=== PATIENT | male | born 1960 | race American Indian/Alaskan Native ===

== ENCOUNTER 2016-12-08 09:22 | Observation (INO) | payer MEDICAID ==
--- NOTE | 2016-12-08 09:43 | ED PDOC ---
HPI: Chest Pain Time Seen by Provider: 12/08/16 09:30 Chief Complaint (Provider): Chest pain with shortness of breath History Per: Patient History/Exam Limitations: no limitations Onset/Duration Of Symptoms: Days (x2) Current Symptoms Are (Timing): Still Present Additional Complaint(s): Ryan Rucker is a 56 year old male with a past medical history of CAD, MO, and CHF presenting to the ED for an evaluation of left sided non-radiating chest pain associated with shortness of breath occurring for 2 days prior to arrival. The patient states he has had swelling to his lower extremities. He denies fever or cough. PMD: TBD Past Medical History Reviewed: Historical Data, Nursing Documentation, Vital Signs Vital Signs: Last Vital Signs Temp 97 F L 12/08/16 09:42 Pulse 93 H 12/08/16 09:42 Resp 18 12/08/16 09:42 BP 125/81 12/08/16 09:42 Pulse Ox 97 12/08/16 09:42 - Medical History PMH: CAD, CHF, HTN Other PMH: MO - Family History Family History: States: Unknown Family Hx - Immunization History Hx Tetanus Toxoid Vaccination: No Hx Influenza Vaccination: No Hx Pneumococcal Vaccination: No - Home Medications Home Medications: Ambulatory Orders Medication Instructions Recorded Aspirin [Ecotrin] 81 mg PO DAILY #30 tabec 06/06/16 Carvedilol [Coreg] 6.25 mg PO BID #60 tab 06/06/16 Furosemide [Lasix] 20 mg PO DAILY #30 tablet 06/06/16 Lisinopril [Zestril] 2.5 mg PO DAILY #30 tab 06/06/16 Spironolactone [Aldactone] 25 mg PO DAILY #30 tab 06/06/16 - Allergies Allergies/Adverse Reactions: Allergies Allergy/AdvReac Type Severity Reaction Status Date / Time No Known Allergies Allergy Verified 12/08/16 09:42 Review of Systems ROS Statement: Except As Marked, All Systems Reviewed And Found Negative Constitutional: Negative for: Fever Cardiovascular: Positive for: Chest Pain (left sided ) Respiratory: Positive for: Shortness of Breath. Negative for: Cough Musculoskeletal: Positive for: Leg Pain (swelling to lower extremities ) Physical Exam - Reviewed Nursing Documentation Reviewed: Yes Vital Signs Reviewed: Yes - Physical Exam Appears: Positive for: Non-toxic, No Acute Distress Head Exam: Positive for: ATRAUMATIC, NORMOCEPHALIC Cardiovascular/Chest: Positive for: Regular Rate, Rhythm, Murmur (2/6 systolic murmur ) Respiratory: Positive for: Rales (minimal rales to right base). Negative for: Wheezing, Respiratory Distress Gastrointestinal/Abdominal: Positive for: Normal Exam, Soft. Negative for: Tenderness Extremity: Positive for: Other (2+ pitting edema to lower extremities bilaterally ) Neurologic/Psych: Positive for: Alert, Oriented (x3) - Laboratory Results Result Diagrams: 12/08/16 09:59 12/08/16 09:59 Medical Decision Making Medical Decision Making: Time: 09:30 Impression: Left sided chest pain with shortness of breath Plan: * ED ekg * Alcohol Serum * B-Type Natriuretic Peptide * CMP * Drug screen, Urine * Troponin I * CBC (with differential) * Aspirin 325 mg PO * [RAD] Chest Two Views (PA/LAT) * Reevaluation Scribe Attestation: Documented by Tory Barton, acting as a scribe for Manolo Sykes MD. Provider Scribe Attestation: All medical record entries made by the Scribe were at my direction and personally dictated by me. I have reviewed the chart and agree that the record accurately reflects my personal performance of the history, physical exam, medical decision making, and the department course for this patient. I have also personally directed, reviewed, and agree with the discharge instructions and disposition. Disposition - Clinical Impression Clinical Impression: Chest pain, Pleural effusion - Patient ED Disposition Is Patient to be Admitted: Yes - Disposition Disposition Time: 10:57 Condition: FAIR - Pt Status Changed To: Hospital Disposition Of: Observation - POA Present On Arrival: None
[2016-12-08 10:30] LABS: BASO # 0.1 K/uL (0.0-0.2); EOS % 0.4 % (0.0-4.0); HEMATOCRIT 33.7 % (35.0-51.0); LYMPH # 0.8 K/uL (1.0-4.3); LYMPH % 14.5 % (20.0-40.0); MEAN CELL VOLUME 107.6 fl (80.0-94.0); MEAN CORPUSCULAR HEMOGLOBIN 35.2 pg (27.0-31.0); MEAN CORPUSCULAR HGB CONC 32.7 g/dL (33.0-37.0); MEAN PLATELET VOLUME 8.1 fl (7.2-11.7); MONO # 0.8 K/uL (0.0-0.8); MONO % 14.4 % (0.0-10.0); NEUT % 69.7 % (50.0-75.0); NRBC % 0.1 % (0.0-0.0); RED CELL DISTRIBUTION WIDTH 17.1 % (11.5-14.5); WHITE BLOOD COUNT 5.7 K/uL (4.8-10.8)
--- NOTE | 2016-12-08 10:31 | RAD ---
HISTORY: chest pain COMPARISON: No prior. TECHNIQUE: Chest PA and lateral FINDINGS: LUNGS: There is loss of the left hemidiaphragm in the frontal view alone. Consider left lower lobe infiltrate or atelectasis. There is also small patchy density questioned at the left apex laterally versus artifact. No definite infiltrate is apparent at the right. Trace linear atelectasis in the right base laterally. PLEURA: No significant pleural effusion identified. No pneumothorax apparent. CARDIOVASCULAR: Cardiomegaly is seen without pulmonary vascular derangement. OSSEOUS STRUCTURES: No significant abnormalities. VISUALIZED UPPER ABDOMEN: Normal. OTHER FINDINGS: None. IMPRESSION: 1. Left lower lobe infiltrate or atelectasis suspected. Trace patchy density seen the left apex laterally as well. No definite right-sided infiltrate. 2. Linear atelectasis or fibrosis right base laterally. 3. Cardiomegaly without pulmonary vascular derangement.
[2016-12-08 10:46] LABS: ALB/GLOB RATIO 0.8 (1.0-2.1); ALCOHOL SERUM 21 mg/dl (0-10); ALKALINE PHOSPHATASE 103 U/L (38-126); ALT/SGPT 42 U/L (21-72); AST/SGOT 79 U/L (17-59); BILIRUBIN,TOTAL 1.9 mg/dl (0.2-1.3); BLOOD UREA NITROGEN 5 mg/dl (9-20); CALCIUM 8.8 mg/dL (8.4-10.2); CARBON DIOXIDE 27 mmol/L (22-30); CHLORIDE 100 mmol/L (98-107); GFR AFRICAN-AMERICAN > 60; GLUCOSE,RANDOM 92 mg/dL (75-110); POTASSIUM 4.3 MMOL/L (3.6-5.0); SODIUM 140 mmol/l (132-148); TOTAL PROTEIN 8.4 G/DL (6.3-8.2)
[2016-12-08 13:25] LABS: CHOLESTEROL 120 mg/dL (0-199)
[2016-12-08] MEDS ORDERED: Enoxaparin 40 mg Syringe SC SCH (15:15)
--- NOTE | 2016-12-08 16:32 | CP.PCM.HP ---
History of Present Illness - History of Present Illness History of Present Illness: CC: chest pain This is a 56 year old male with past medical history of DC, CHF, and hypertension, who presents to the ED with the comlaint of lower extremity swelling and shortness of breath. The patient states that he has ran out of his medications and has not taken any since he was discharged from [facility] 2 weeks ago. He denies history of blood clots. He admits to dyspnea on exertion and is only able to go up 1 flight of stairs before having to catch his breath. He admits to sharp , mild chest pain this morning, pressure like, on the right side of his chest, dull, nonradiating. Pain is now a 3/10. He denies diaphoresis, changes in vision, confusion, fevers, chills, n/v , diarrhea, constipation, abdominal pain, headache. Patient is homeless. In the ED, the patient had CXR showing small pleural effusion. He was noted to have increased bilateral pedal edema. He is to be placed on tele/obs for increased third spacing of fluid and sob secondary to CHF, with r/o of acs due to chest pain. Present on Admission - Present on Admission Any Indicators Present on Admission: No Review of Systems - Hematologic/Lymphatic Additional comments: REVIEW OF SYSTEMS: CONSTITUTIONAL: No weight loss, fever, chills, weakness or fatigue. HEENT: Eyes: No visual loss, blurred vision, double vision or yellow sclerae. Ears, Nose, Throat: No hearing loss, sneezing, congestion, runny nose or sore throat. SKIN: No rash or itching. CARDIOVASCULAR: Chest pain as in HPI, + BL LE edema, no palpitations RESPIRATORY: + occasional SOB, cough, no sputum production GASTROINTESTINAL: No anorexia, nausea, vomiting or diarrhea. No abdominal pain or blood. GENITOURINARY: no frequency, dysuria, cloudy urine NEUROLOGICAL: No headache, dizziness, syncope, paralysis, ataxia, numbness or tingling in the extremities. No change in bowel or bladder control. MUSCULOSKELETAL: No muscle, back pain, joint pain or stiffness. HEMATOLOGIC: No anemia, bleeding or bruising. LYMPHATICS: No enlarged nodes. No history of splenectomy. PSYCHIATRIC: No history of depression or anxiety. ENDOCRINOLOGIC: No reports of sweating, cold or heat intolerance. No polyuria or polydipsia. ALLERGIES: No history of asthma, hives, eczema or rhinitis. Past Patient History - Infectious Disease Hx of Infectious Diseases: None - Past Medical History & Family History Past Medical History?: Yes Past Family History: Reviewed and not pertinent - Past Social History Smoking Status: Former Smoker Alcohol: Occasional Drugs: Denies Home Situation {Lives}: Homeless - CARDIAC Hx Cardiac Disorders: Yes (DC,CAD) - MUSCULOSKELETAL/RHEUMATOLOGICAL Hx Falls: No - PSYCHIATRIC Hx Substance Use: No - SURGICAL HISTORY Other/Comment: PT REFUSED CARDIAC STENT - ANESTHESIA Hx Anesthesia: No Meds Allergies/Adverse Reactions: Allergies Allergy/AdvReac Type Severity Reaction Status Date / Time No Known Allergies Allergy Verified 12/08/16 09:42 Physical Exam - Additional Findings Additional findings: PHYSICAL EXAMINATION: GENERAL: The patient is alert and oriented x 3, appears comfortable HEENT: Normocephalic, atraumatic. Extraocular movements intact. No sinus tenderness. Oropharynx clear. Mucous membranes are moist. no scleral icterus NECK: Supple without lymph node. CHEST: + Rales bilaterally, no rhonchi or wheezing HEART: S1, S2. regular rate and rhythm ABDOMEN: Soft, nontender, nondistended No organomegaly. EXTREMITIES: +2 bilateral lower extremity edema. No cyanosis, clubbing NEUROLOGIC: No focal deficit. No sensory deficit. PSYCHOSOCIAL: No signs of depression and is nonfocal. INTEGUMENT: Moist mucous membranes. Good skin turgor, intact. Results - Vital Signs Recent Vital Signs: Last Vital Signs Temp 98.4 F 12/08/16 16:18 Pulse 95 H 12/08/16 16:18 Resp 20 12/08/16 16:18 BP 119/85 12/08/16 16:18 Pulse Ox 99 12/08/16 16:18 - Labs Result Diagrams: 12/08/16 09:59 12/08/16 09:59 Labs: Laboratory Results - last 24 hr 12/08/16 12/08/16 09:59 09:59 WBC 5.7 RBC 3.13 L Hgb 11.0 L Hct 33.7 L MCV 107.6 H MCH 35.2 H MCHC 32.7 L RDW 17.1 H Plt Count 179 MPV 8.1 Neut % (Auto) 69.7 Lymph % (Auto) 14.5 L [place] % (Auto) 14.4 H Eos % (Auto) 0.4 Baso % (Auto) 1.0 Neut # 4.0 Lymph # 0.8 L [place] # 0.8 Eos # 0.0 Baso # 0.1 Sodium 140 Potassium 4.3 Chloride 100 Carbon Dioxide 27 Anion Gap 17 BUN 5 L Creatinine 0.7 L Est GFR ( Amer) > 60 Est GFR (Non-Af Amer) > 60 Random Glucose 92 Calcium 8.8 Total Bilirubin 1.9 H AST 79 H ALT 42 Alkaline Phosphatase 103 Troponin I 0.0220 NT-Pro-B Natriuret Pep 3310 H Total Protein 8.4 H Albumin 3.7 Globulin 4.7 H Albumin/Globulin Ratio 0.8 L Triglycerides 64 Cholesterol 120 LDL Cholesterol Direct 70 HDL Cholesterol 35 Alcohol, Quantitative 21 H Assessment & Plan - Assessment and Plan (Free Text) Plan: ASSESSMENT - Fluid overload secondary to CHF exacerbation, with medical noncompliance - Hypertension - History of DC - Homeless PLAN - Telemetry/observation - Consultation with Dr. Mendosa, cardiology- placed order for Lasix 40 mg IV BID - I&O, daily weights - Kdur 20 meq po daily with Lasix on board - Nitro PRN for chest pain - Aldactone 25 mg po daily - Coreg 6.25 mg po BID - Lipitor 20 mg po HS started - Lisinopril 2.5 mg po daily - ASA 81 mg po daily - Cycle troponins - Estimated LOS < 2 midnights
[2016-12-08] MEDS: Potassium Chloride 20 mEq ER Tab PO SCH (16:41)
--- NOTE | 2016-12-09 05:59 | CON ---
DATE: CARDIOLOGY CONSULT REASON FOR CONSULTATION: Exacerbation of congestive heart failure. HISTORY OF PRESENT ILLNESS: The patient is a 56-year-old -[place] male who has a history of cardiomyopathy. The patient also has a history of coronary artery disease. He underwent coronary intervention few years ago at [facility], but does not recall the name of the melting operator. The patient is on no medications and he is homeless. He presented because of chest pain and shortness of breath. The patient is unable to characterize his chest discomfort except for tightness. The patient is also experiencing leg swelling. The patient denies any hemoptysis and denies any fever or chills. SOCIAL HISTORY: The patient is a smoker, EtOH abuser, and he is a former IV drug abuser. MEDICATIONS: Aldactone 25 mg once a day, Coreg 6.25 mg once a day, aspirin 81 mg once a day, subcutaneous heparin 5000 units twice a day, Lipitor 20 mg once a day, Zestril 2.5 mg once a day, subcutaneous heparin 5000 units q.12 hours. PHYSICAL EXAMINATION: GENERAL: The patient is a middle-aged male who is mildly tachypneic. VITAL SIGNS: Blood pressure 98/69, heart rate 93, temperature 97, and respirations 18. HEENT: No icterus. NECK: Jugular venous distention noted. CHEST: Minimal basal crepitations. HEART: S1, S2, regular. S3 gallop is noted. ABDOMEN: Soft. EXTREMITIES: 2+ pitting edema. LABORATORY DATA: Hemoglobin and hematocrit 11 and 33.7. White count and platelet count are within normal limits. SMA-7 is within normal limits except for BUN and creatinine of 5 and 0.7. Total bilirubin is 1.9. ProBNP is 3310. One set of troponin is negative. Alcohol level is 21. Chest x-ray revealed cardiomegaly. An echocardiograph study from 06/2016, revealed ejection fraction estimated at 25% with global left ventricular hypokinesis and mildly dilated aortic root, and moderate pulmonary hypertension. ASSESSMENT: 1. Exacerbation of congestive heart failure. 2. History of coronary artery disease. 3. Moderate pulmonary hypertension. 4. Ethyl alcohol abuse. RECOMMENDATIONS: Continue Aldactone 25 mg daily, Coreg 6.25 mg twice a day, aspirin 81 mg once a day, subcutaneous heparin 5000 units twice a day, Lipitor 20 mg once a day, Zestril 2.5 mg once a day, start Lasix 40 mg again twice a day, and K-Dur 20 mEq orally once a day. Obtain urine for drug screen. Monitor daily EKGs and serial cardiac enzymes. Today's EKG was reviewed and revealed normal sinus rhythm, left atrial enlargement, right axis deviation, and nonspecific intraventricular conduction delay. Shahram Mendosa MD
[2016-12-09 08:37] VITALS: TEMP 98.4
[2016-12-09] MEDS: Potassium Chloride 20 mEq ER Tab PO SCH (09:10)
--- NOTE | 2016-12-09 11:06 | CP.PCM.DIS ---
Provider - Provider Date of Admission: 12/08/16 10:58 Attending physician: Irving Rodriguez DO Time Spent in preparation of Discharge (in minutes): 25 Diagnosis - Discharge Diagnosis (1) Chest pain Status: Acute Comment: serial troponins and EKG were negative for ischemic events. continue ASA, Carvedilol (2) CHF exacerbation Status: Acute Comment: Lasix, Aldactone and Lisinopril were resumed (3) HTN (hypertension) Status: Chronic Comment: BP stable. on Carvedilol, Lasix and Lisinopril Hospital Course - Lab Results Lab Results: Most Recent Lab Values WBC 5.7 K/uL (4.8-10.8) 12/08/16 09:59 RBC 3.13 Mil/uL (4.40-5.90) L 12/08/16 09:59 Hgb 11.0 g/dL (12.0-18.0) L 12/08/16 09:59 Hct 33.7 % (35.0-51.0) L 12/08/16 09:59 MCV 107.6 fl (80.0-94.0) H 12/08/16 09:59 MCH 35.2 pg (27.0-31.0) H 12/08/16 09:59 MCHC 32.7 g/dL (33.0-37.0) L 12/08/16 09:59 RDW 17.1 % (11.5-14.5) H 12/08/16 09:59 Plt Count 179 K/uL (130-400) 12/08/16 09:59 MPV 8.1 fl (7.2-11.7) 12/08/16 09:59 Neut % (Auto) 69.7 % (50.0-75.0) 12/08/16 09:59 Lymph % (Auto) 14.5 % (20.0-40.0) L 12/08/16 09:59 [place] % (Auto) 14.4 % (0.0-10.0) H 12/08/16 09:59 Eos % (Auto) 0.4 % (0.0-4.0) 12/08/16 09:59 Baso % (Auto) 1.0 % (0.0-2.0) 12/08/16 09:59 Neut # 4.0 K/uL (1.8-7.0) 12/08/16 09:59 Lymph # 0.8 K/uL (1.0-4.3) L 12/08/16 09:59 [place] # 0.8 K/uL (0.0-0.8) 12/08/16 09:59 Eos # 0.0 K/uL (0.0-0.7) 12/08/16 09:59 Baso # 0.1 K/uL (0.0-0.2) 12/08/16 09:59 Sodium 140 mmol/l (132-148) 12/08/16 09:59 Potassium 4.3 MMOL/L (3.6-5.0) 12/08/16 09:59 Chloride 100 mmol/L (98-107) 12/08/16 09:59 Carbon Dioxide 27 mmol/L (22-30) 12/08/16 09:59 Anion Gap 17 (10-20) 12/08/16 09:59 BUN 5 mg/dl (9-20) L 12/08/16 09:59 Creatinine 0.7 mg/dL (0.8-1.5) L 12/08/16 09:59 Est GFR ( Amer) > 60 12/08/16 09:59 Est GFR (Non-Af Amer) > 60 12/08/16 09:59 Random Glucose 92 mg/dL (75-110) 12/08/16 09:59 Calcium 8.8 mg/dL (8.4-10.2) 12/08/16 09:59 Total Bilirubin 1.9 mg/dl (0.2-1.3) H 12/08/16 09:59 AST 79 U/L (17-59) H 12/08/16 09:59 ALT 42 U/L (21-72) 12/08/16 09:59 Alkaline Phosphatase 103 U/L (38-126) 12/08/16 09:59 Troponin I 0.0230 ng/mL (0.00-0.120) 12/09/16 02:29 NT-Pro-B Natriuret Pep 3310 pg/ml (0-900) H 12/08/16 09:59 Total Protein 8.4 G/DL (6.3-8.2) H 12/08/16 09:59 Albumin 3.7 g/dL (3.5-5.0) 12/08/16 09:59 Globulin 4.7 gm/dL (2.2-3.9) H 12/08/16 09:59 Albumin/Globulin Ratio 0.8 (1.0-2.1) L 12/08/16 09:59 Triglycerides 64 mg/DL (0-149) 12/08/16 09:59 Cholesterol 120 mg/dL (0-199) 12/08/16 09:59 LDL Cholesterol Direct 70 mg/dL (0-129) 12/08/16 09:59 HDL Cholesterol 35 MG/DL (30-70) 12/08/16 09:59 Urine Opiates Screen No result (NEGATIVE) 12/08/16 16:07 Urine Methadone Screen Negative (NEGATIVE) 12/08/16 16:07 Ur Barbiturates Screen Negative (NEGATIVE) 12/08/16 16:07 Ur Phencyclidine Scrn Negative (NEGATIVE) 12/08/16 16:07 Ur Amphetamines Screen Negative (NEGATIVE) 12/08/16 16:07 U Benzodiazepines Scrn Negative (NEGATIVE) 12/08/16 16:07 U Oth Cocaine Metabols Negative (NEGATIVE) 12/08/16 16:07 U Cannabinoids Screen Negative (NEGATIVE) 12/08/16 16:07 Alcohol, Quantitative 21 mg/dl (0-10) H 12/08/16 09:59 - Hospital Course Hospital Course: 56 yo male with history of CAD, CHF and HTN came in because of leg swelling and dyspnea associated with right sided chest pain. He was recently discharged from [facility] but had not taken his medicines since he was discharged. Medications were resumed and patient did well. Serial Troponins were negative for ischemic events. Discharge Exam - Head Exam Head Exam: ATRAUMATIC, NORMOCEPHALIC - Eye Exam Eye Exam: absent: Scleral icterus - ENT Exam ENT Exam: Mucous Membranes Moist - Respiratory Exam Respiratory Exam: NORMAL BREATHING PATTERN. absent: Wheezes, Respiratory Distress - Cardiovascular Exam Cardiovascular Exam: REGULAR RHYTHM, +S1, +S2 - GI/Abdominal Exam GI & Abdominal Exam: Soft. absent: Tenderness - Extremities Exam Extremities exam: pedal edema - Neurological Exam Neurological exam: Alert, Oriented x3 - Psychiatric Exam Psychiatric exam: Normal Affect - Skin Skin Exam: Dry, Intact Discharge Plan - Discharge Medications Prescriptions: Carvedilol [Coreg] 6.25 mg PO BID #60 tab Furosemide [Lasix] 20 mg PO DAILY #30 tablet Lisinopril [Zestril] 2.5 mg PO DAILY #30 tab Spironolactone [Aldactone] 25 mg PO DAILY #30 tab Thiamine [Vitamin B1 Tab] 100 mg PO DAILY #30 tab - Follow Up Plan Condition: FAIR Disposition: HOME/ ROUTINE Instructions: Heart Failure (DC), Dyspnea (GEN) Referrals: [facility] [place] [Outside] Fermín Sin MD [Medical Doctor] - Shahram Mendosa MD [Staff Provider] -
[2016-12-09 12:42] VITALS: BP 94/66; PULSE 72; RESP 18; O2SAT 97
--- NOTE | 2016-12-09 12:48 | CARD ---
APPROVED REPORT EKG Measurement Heart [id number] <Conclusion> Normal sinus rhythm Possible Left atrial enlargement Right superior axis deviation Nonspecific intraventricular block Abnormal ECG
--- NOTE | 2016-12-09 15:37 | PN ---
SUBJECTIVE: The patient's shortness of breath has improved. He denies any chest pain. PHYSICAL EXAMINATION: VITAL SIGNS: Blood pressure 104/67, heart rate 78, temperature 98.4, respirations 20. HEENT: Normocephalic. CHEST: Minimal basilar rhonchi. HEART: S1, S2, regular. EXTREMITIES: Trace leg edema. LABORATORY DATA: Total of three troponins are within normal limit. ASSESSMENT: 1. Consider ischemic cardiomyopathy. 2. Ethanol abuse. 3. Moderate pulmonary hypertension. RECOMMENDATIONS: Continue current Aldactone 25 mg once a day, Coreg 6.25 mg twice a day, aspirin 81 mg once daily, subcutaneous heparin 5000 units twice a day, K-Dur 20 mEq once a day, Lasix 40 mg intravenous twice a day, Zestril 2.5 mg once a day, thiamine 100 mg once daily. Definitely, the patient needs much more support in terms of having a prescription plan, having a place to live and social service consult as needed and is recommended. The patient is not a suitable candidate for anticoagulation therapy. Shahram Mendosa MD
== END 2016-12-09 15:22 | disposition home or self-care (01) ==
LOC: H.ER 09:22 → H.ERHOLD 10:58 → H.TEL 14:19
PROVIDERS: ADMIT Internal Medicine; ATTEND Internal Medicine
DX: I11.0 Hypertensive heart disease with heart failure (principal); F10.10 Alcohol abuse, uncomplicated; F17.200 Nicotine dependence, unspecified, uncomplicated; I25.10 Atherosclerotic heart disease of native coronary artery without angina pectoris; I25.2 Old myocardial infarction; I27.20 Pulmonary hypertension, unspecified; I42.9 Cardiomyopathy, unspecified; I50.9 Heart failure, unspecified; Z59.0 Homelessness; Z79.82 Long term (current) use of aspirin; Z91.19 Patient's noncompliance with other medical treatment and regimen
CPT/HCPCS: 36415; 71020; 80053; 80061; 83880; 84484; 85025; 93005; 96374; 99282; G0378; G0480; J1644; J1940

== ENCOUNTER 2017-06-16 01:55 | Emergency (ER) | payer OTHER ==
[2017-06-16 02:20] VITALS: BP 117/81; PULSE 71; RESP 18; TEMP 97.7; O2SAT 100
[2017-06-16] MEDS ORDERED: Naproxen 500 MG TAB PO ONE ×2 (02:37→03:11)
--- NOTE | 2017-06-16 02:42 | ED PDOC ---
Upper Extremity Pain/Injury Time Seen by Provider: 06/16/17 02:30 Chief Complaint (Nursing): Upper Extremity Problem/Injury Chief Complaint (Provider): shoulder pain History Per: Patient History/Exam Limitations: no limitations Onset/Duration Of Symptoms: Days (years) Current Symptoms Are (Timing): Still Present Exacerbating Factor(s): Strenuous Use Of Affected Area Additional Complaint(s): 56 y/o male presents for evaluation of bilateral shoulder pain x years. Patient states he was told he has "rotator cuff" problems on both shoulders that were diagnosed by a specialist and he was told he needs surgical intervention. Patient states he is scared of surgery so he has not followed up with it. Denies new shoulder injury, numbness/weakness left upper extremity, limitation of movement. Past Medical History Reviewed: Historical Data, Nursing Documentation, Vital Signs Vital Signs: Last Vital Signs Temp 97.7 F 06/16/17 02:17 Pulse 71 06/16/17 02:17 Resp 18 06/16/17 02:17 BP 117/81 06/16/17 02:17 Pulse Ox 100 06/16/17 02:17 - Medical History PMH: CAD, CHF, HTN, Hyperlipidemia Denies: Chronic Kidney Disease - Family History Family History: States: Unknown Family Hx, CAD - Immunization History Hx Tetanus Toxoid Vaccination: No Hx Influenza Vaccination: No Hx Pneumococcal Vaccination: No - Home Medications Home Medications: Ambulatory Orders Medication Instructions Recorded Aspirin [Ecotrin] 81 mg PO DAILY tabec 06/13/17 Furosemide [Lasix] 40 mg PO DAILY tab 06/13/17 Lisinopril [Zestril] 5 mg PO DAILY tab 06/13/17 Metoprolol Succinate [Toprol XL] 25 mg PO DAILY tab 06/13/17 - Allergies Allergies/Adverse Reactions: Allergies Allergy/AdvReac Type Severity Reaction Status Date / Time No Known Allergies Allergy Verified 06/15/17 00:13 Review of Systems ROS Statement: Except As Marked, All Systems Reviewed And Found Negative Musculoskeletal: Positive for: Shoulder Pain Physical Exam - Reviewed Nursing Documentation Reviewed: Yes Vital Signs Reviewed: Yes - Physical Exam Appears: Positive for: Well, Non-toxic, No Acute Distress Head Exam: Positive for: ATRAUMATIC, NORMAL INSPECTION, NORMOCEPHALIC Skin: Positive for: Normal Color Cardiovascular/Chest: Positive for: Regular Rate, Rhythm Respiratory: Positive for: Normal Breath Sounds Pulses-Radial (L): 2+ Pulses-Radial (R): 2+ Extremity: Positive for: Normal ROM, Capillary Refill (<2 sec b/l UE). Negative for: Deformity, Swelling Neurologic/Psych: Positive for: Alert, Oriented. Negative for: Motor/Sensory Deficits - ECG O2 Sat by Pulse Oximetry: 100 - Progress ED Course And Treament: Patient educated on findings, discharged with instructions to follow up ortho. Return precautions given. Disposition - Clinical Impression Clinical Impression: Chronic pain of both shoulders - Patient ED Disposition Is Patient to be Admitted: No Counseled Patient/Family Regarding: Diagnosis, Need For Followup - Disposition Referrals: Shannon Casarez MD [Staff Provider] - [facility] [place] [Outside] Disposition: Routine/Home Disposition Time: 02:44 Condition: IMPROVED Instructions: Shoulder Pain (DC) Forms: [employer] [facility] (Azeri)
== END 2017-06-16 04:16 | disposition home or self-care (01) ==
LOC: H.ER 01:55
DX: M25.511 Pain in right shoulder (principal); M25.512 Pain in left shoulder; G89.29 Other chronic pain; I25.10 Atherosclerotic heart disease of native coronary artery without angina pectoris; I11.0 Hypertensive heart disease with heart failure; E78.5 Hyperlipidemia, unspecified; Z79.82 Long term (current) use of aspirin